=== PATIENT | male | born 1990 | race African-American/Black ===

== ENCOUNTER 2016-11-03 13:23 | Inpatient (IN) ==
[2016-11-03] MEDS ORDERED: LACTATED RINGERS 1,000 ML IV STA (13:26)
[2016-11-03] MEDS ORDERED: HYDROmorphone 2 MG/1 ML VIAL IV STA (13:26)
[2016-11-03] MEDS ORDERED: DIPH/TET/ACEL PERT BOOSTER VACCINE 0.5 ML VIAL IM ONE ×2 (13:26→14:00)
[2016-11-03] MEDS ORDERED: ONDANSETRON 4 MG/2 ML VIAL IV STA (13:26)
[2016-11-03] MEDS ORDERED: LACTATED RINGERS 1,000 ML IV ONE (13:33)
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
[2016-11-03 13:45] LABS: ABG HCO3 22.9 MMOL/L (20-26); ABG Oxygen Saturation 99.3 % (95-100); ABG PCO2 32.2 MM HG (35-48); ABG PO2 229.7 MM HG (80-95); ABG TCO2 23.9 MMOL/L (23-27)
[2016-11-03 13:49] LABS: Basophils # 0.1 10*3/uL (0.0-0.2); Basophils % 0.7 % (0.0-0.8); Eosinophils # 0.2 10*3/uL (0.0-0.87); Eosinophils % 2.5 % (0.00-10.9); Hematocrit 47.3 VOL% (42.0-52.0); Hemoglobin 14.8 GM/DL (14.0-18.0); Immature Granulocytes % 0.4 %; Immature Granulocytes Absolute 0.04 #; Lymphocytes # 3.1 10*3/uL (1.4-4.0); Lymphocytes % 32.2 % (21.2-54.2); Mean Corpuscular HGB Conc 31.3 GM/DL (32-36); Mean Corpuscular Hemoglobin 26 PG (27-34); Mean Corpuscular Volume 84.2 FL (87-102); Mean Platelet Volume 11.5 FL (9.6-12.0); Monocytes # 0.7 10*3/uL (0.11-0.8); Monocytes % 7.8 % (1.7-12.7); Neutrophils # 5.4 10*3/uL (1.4-7.4); Neutrophils % 56.4 % (38.7-73.9); Platelet Count 332 T/CUMM (130-400); Red Blood Count 5.62 MC/CUMM (3.8-5.5); Red Cell Distribution Width 14.6 % (9.3-17.3); White Blood Count 9.5 T/CUMM (4-12)
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
[2016-11-03 14:00] LABS: PT Patient Result 10.7 SECS; Partial Thromboplastin Time 30.1 SECS (0-40)
[2016-11-03] MEDS ORDERED: ceFAZolin 1,000 MG VIAL ONE (14:00)
[2016-11-03] MEDS ORDERED: HYDROmorphone 2 MG/1 ML VIAL ONE (14:00)
[2016-11-03] MEDS ORDERED: ONDANSETRON 4 MG/2 ML VIAL ONE (14:00)
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
[2016-11-03 14:17] LABS: Lactic Acid 4.2 MMOL/L (0.4-2.0)
[2016-11-03 14:20] LABS: Alanine Aminotransferase 54 U/L (16-61); Alkaline Phosphatase 108 U/L (45-117); Amylase 58 U/L (25-115); Aspartate Amino Transferase 28 U/L (0-37); Blood Urea Nitrogen 10 MG/DL (7-18); Calcium 9.4 MG/DL (8.5-10.1); Glucose 105 MG/DL (74-106); Osmolality,Calculated 277.4 MOS/KG (273-304); Sodium 140 MMOL/L (136-145); Total Protein 7.8 G/DL (6.4-8.3)
--- NOTE | 2016-11-03 14:22 | XRay Report ---
XR pelvis AP 1 or 2 Views Indication: Pelvic injury. Pelvis one view: Bladder contains a small amount of IV contrast in the right ureter is opacified, threadlike. Left ureter is dilated although the reason is unclear based on this exam. Suspect chronic reflux. Pelvic ring is intact without acute fracture. No diastases or dislocation shown. Impression: Dilated distal left ureter. No acute pelvic injury identified. PROCEDURE INTERPRETED AT [facility] DEPARTMENT OF RADIOLOGY Final Report Signed by: Russell Luther M.D.
[2016-11-03] MEDS ORDERED: ONDANSETRON 4 MG/2 ML VIAL IV PRN (14:23)
[2016-11-03] MEDS ORDERED: HYDROmorphone 2 MG/1 ML VIAL IV PRN (14:23)
[2016-11-03] MEDS ORDERED: ACETAMINOPHEN 325 MG TABLET PO PRN (14:23)
[2016-11-03] MEDS ORDERED: ALUMINUM/MAGNES/SIMETH MAX STR 30 ML UDCUP PO PRN (14:23)
[2016-11-03] MEDS ORDERED: METHOCARBAMOL 750 MG TABLET PO PRN (14:30)
[2016-11-03] MEDS ORDERED: CHLORHEXIDINE 4% SOLN 118 ML BOTTLE TOP ONE (14:32)
[2016-11-03] MEDS: DEXTROSE 5% LACTATED RINGERS 1,000 ML IV SCH (16:47)
[2016-11-03] MEDS: KETOROLAC 10 MG TABLET PO SCH ×2 (16:47→21:02)
[2016-11-03] MEDS: METOCLOPRAMIDE 5 MG TABLET PO SCH ×2 (16:48→21:03)
[2016-11-03] MEDS: DOCUSATE SODIUM 100 MG CAPSULE PO SCH (21:03)
[2016-11-04] MEDS: DEXTROSE 5% LACTATED RINGERS 1,000 ML IV SCH ×4 (00:50→17:42)
[2016-11-04] MEDS: KETOROLAC 10 MG TABLET PO SCH ×4 (03:06→21:29)
[2016-11-04 06:18] LABS: Basophils # 0.1 10*3/uL (0.0-0.2); Basophils % 0.6 % (0.0-0.8); Eosinophils # 0.2 10*3/uL (0.0-0.87); Hemoglobin 12.3 GM/DL (14.0-18.0); Immature Granulocytes % 0.4 %; Immature Granulocytes Absolute 0.03 #; Lymphocytes # 1.7 10*3/uL (1.4-4.0); Lymphocytes % 21.3 % (21.2-54.2); Mean Corpuscular HGB Conc 31.5 GM/DL (32-36); Mean Corpuscular Hemoglobin 26 PG (27-34); Mean Corpuscular Volume 82.8 FL (87-102); Mean Platelet Volume 11.1 FL (9.6-12.0); Monocytes # 0.9 10*3/uL (0.11-0.8); Monocytes % 11.1 % (1.7-12.7); Neutrophils # 5.1 10*3/uL (1.4-7.4); Neutrophils % 64.6 % (38.7-73.9); Platelet Count 292 T/CUMM (130-400); Red Blood Count 4.71 MC/CUMM (3.8-5.5); Red Cell Distribution Width 14.6 % (9.3-17.3); White Blood Count 7.9 T/CUMM (4-12)
[2016-11-04 06:44] LABS: Bilirubin,Total 0.6 MG/DL (0.2-1.0); Osmolality,Calculated 272.7 MOS/KG (273-304); Potassium 4.3 MMOL/L (3.5-5.1); Total Protein 5.9 G/DL (6.4-8.3)
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
[2016-11-04] MEDS: METOCLOPRAMIDE 5 MG TABLET PO SCH ×4 (07:47→21:29)
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
[2016-11-04] MEDS: PANTOPRAZOLE 40 MG VIAL IV SCH (08:03)
[2016-11-04] MEDS: DOCUSATE SODIUM 100 MG CAPSULE PO SCH ×2 (08:03→21:29)
[2016-11-04] MEDS ORDERED: PANTOPRAZOLE 40 MG TABLET PO SCH (09:00)
[2016-11-04] MEDS ORDERED: BACITRACIN OINT 0.9 GM PACK TOP SCH (09:00)
[2016-11-04] MEDS: BACITRACIN OINT 0.9 GM PACK TOP SCH (11:00)
[2016-11-04] MEDS ORDERED: traMADol 50 MG TABLET PO PRN (17:18)
[2016-11-04] MEDS: INDOMETHACIN 25 MG CAPSULE PO SCH ×2 (17:44→21:42)
[2016-11-05] MEDS: KETOROLAC 10 MG TABLET PO SCH ×2 (02:41→08:59)
[2016-11-05] MEDS: DEXTROSE 5% LACTATED RINGERS 1,000 ML IV SCH (05:40)
[2016-11-05 05:49] LABS: Basophils # 0.1 10*3/uL (0.0-0.2); Basophils % 0.8 % (0.0-0.8); Eosinophils # 0.3 10*3/uL (0.0-0.87); Eosinophils % 3.4 % (0.00-10.9); Hematocrit 38.7 VOL% (42.0-52.0); Hemoglobin 12.1 GM/DL (14.0-18.0); Immature Granulocytes % 0.4 %; Immature Granulocytes Absolute 0.03 #; Lymphocytes # 1.7 10*3/uL (1.4-4.0); Lymphocytes % 22.2 % (21.2-54.2); Mean Corpuscular HGB Conc 31.3 GM/DL (32-36); Mean Corpuscular Hemoglobin 26 PG (27-34); Mean Corpuscular Volume 84.3 FL (87-102); Mean Platelet Volume 10.8 FL (9.6-12.0); Monocytes # 0.9 10*3/uL (0.11-0.8); Monocytes % 11.9 % (1.7-12.7); Neutrophils # 4.7 10*3/uL (1.4-7.4); Neutrophils % 61.3 % (38.7-73.9); Platelet Count 271 T/CUMM (130-400); Red Blood Count 4.59 MC/CUMM (3.8-5.5); Red Cell Distribution Width 14.6 % (9.3-17.3); White Blood Count 7.7 T/CUMM (4-12)
[2016-11-05 06:29] LABS: Calcium 8.7 MG/DL (8.5-10.1); Magnesium 2.2 MG/DL (1.8-2.4); Osmolality,Calculated 278.3 MOS/KG (273-304); Potassium 4.6 MMOL/L (3.5-5.1)
[2016-11-05 07:03] VITALS: BP 129/50
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
[2016-11-05] MEDS: METOCLOPRAMIDE 5 MG TABLET PO SCH (08:59)
[2016-11-05] MEDS: DOCUSATE SODIUM 100 MG CAPSULE PO SCH (08:59)
[2016-11-05] MEDS: INDOMETHACIN 25 MG CAPSULE PO SCH (08:59)
[2016-11-05] MEDS: BACITRACIN OINT 0.9 GM PACK TOP SCH (08:59)
[2016-11-05] MEDS: PANTOPRAZOLE 40 MG VIAL IV SCH (09:00)
== END 2016-11-05 10:30 | disposition home or self-care (01) | DRG 563 ==
LOC: EDUNIT# → EDBD → N.ED 13:23 → N.EDINP 14:23 → N.ICU 15:06 → N.3E 11-04 15:24
PROVIDERS: ADMIT Specialist; ATTEND Specialist